=== PATIENT | male | born 1995 | race Caucasian/White ===

== ENCOUNTER 2017-04-08 20:03 | Emergency (ER) | payer OTHER ==
[~2017-04-08] VITALS: Ht 172.7 cm; Wt 108.9 kg
[2017-04-08 20:10] VITALS: BP 134/89
[2017-04-08] MEDS ORDERED: NAPROSYN500 MG PO (22:01)
[2017-04-08] MEDS ORDERED: Orphenadrine C100 MG PO (22:01)
== END 2017-04-08 22:15 | disposition home or self-care (01) ==
LOC: ED 20:03
DX: S16.1XXA Strain of muscle, fascia and tendon at neck level, initial encounter (principal); S00.83XA Contusion of other part of head, initial encounter; V57.5XXA Driver of pick-up truck or van injured in collision with fixed or stationary object in traffic accident, initial encounter; Y93.89 Activity, other specified; Y92.413 State road as the place of occurrence of the external cause; Y99.8 Other external cause status